=== PATIENT | male | born 2005 | race Caucasian/White ===

== ENCOUNTER 2024-08-21 13:50 | Emergency (ER) | payer SELFPAY ==
[2024-08-21] MEDS ORDERED: Sodium Chloride 0.9% 10 ML Syringe FLUSH PRN (14:35)
[2024-08-21] MEDS: Dexamethasone 4 MG/ML SDV IVPUSH ONE (14:49)
[2024-08-21] MEDS: Ketorolac 30 MG/ML SDV IVPUSH ONE (14:50)
[2024-08-21] MEDS: Lactated Ringers 1,000 ML IV ONE (14:50)
[2024-08-21] MEDS: Albuterol/Ipratropium 3.0-0.5 MG/3 ML Neb Soln NEB ONE (14:50)
[2024-08-21 15:08] LABS: BASOPHILS PERCENT AUTO 0.3 % (0.2-1.2); EOSINOPHILS ABSOLUTE AUTO 0.1 x10^3/uL (0.0-0.5); HEMATOCRIT 41.8 % (40.0-52.0); HEMOGLOBIN 14.8 g/dL (14.0-18.0); LYMPHOCYTES ABSOLUTE AUTO 1.2 x10^3/uL (1.0-4.8); LYMPHOCYTES PERCENT AUTO 19.8 % (25.0-50.0); MEAN CORPUSCULAR HEMOGLOBIN 30.3 pg (26.0-32.0); MEAN CORPUSCULAR HGB CONC 35.4 g/dL (32.0-36.0); MEAN CORPUSCULAR VOLUME 85.7 fL (78.0-93.0); NEUTROPHILS ABSOLUTE AUTO 3.6 x10^3/uL (1.8-7.7); NEUTROPHILS PERCENT AUTO 61.9 % (50.0-80.0); PLATELET COUNT,PLT 162 x10^3/uL (130-400); RED BLOOD CELL COUNT 4.88 x10^6/uL (4.5-6.0); WHITE BLOOD CELL COUNT,WBC 5.8 x10^3/uL (4.0-10.0)
[2024-08-21 15:22] LABS: A/G RATIO 1.03; ALBUMIN 3.8 g/dL (3.4-5.0); ANION GAP 14.8 mmol/L (5-15); BILIRUBIN TOTAL 1.1 mg/dL (0.2-1.0); C-REACTIVE PROTEIN 4.42 mg/dL (<=0.50); CREATININE 0.9 mg/dL (0.70-1.30); EST CRCL DRUG DOSING (CG) 160.74 mL/min; POTASSIUM,K 3.8 mmol/L (3.5-5.1); PROTEIN TOTAL,TP 7.5 g/dL (6.4-8.2)
[2024-08-21] MEDS: Azithromycin 250 MG Tab PO ONE (15:38)
[2024-08-21] MEDS: Take Home: Albuterol 18 GM Inhaler, 1 Inhaler Pack INH PRN (15:38)
[2024-08-21] MEDS: Benzonatate 100 MG Cap PO ONE (15:38)
== END 2024-08-21 15:35 | disposition home or self-care (01) ==
LOC: VM.ED 13:50
DX: J18.9 Pneumonia, unspecified organism (principal); Z91.018 Allergy to other foods; Z91.048 Other nonmedicinal substance allergy status; Z79.899 Other long term (current) drug therapy
CPT/HCPCS: 71046; 80053; 85025; 86140; 94640; 96361; 96374; 96375; 99284; 99284-25; A9270-GY; J1100; J1885; J7120; J7620-GY